=== PATIENT | female | born 1975 | race Caucasian/White ===

== ENCOUNTER 2016-07-27 14:19 | Observation (INO) ==
[2016-07-27] MEDS ORDERED: ZOFRAN IV PRN (15:40)
[2016-07-27] MEDS ORDERED: NS 1,000 ML IV ONE (15:45)
[2016-07-27 16:07] LABS: MANUAL DIFF NEEDED? NO
[2016-07-27 16:11] LABS: BASO% 0.6 % (0.0-0.8); EOS# 0.14 X1000 (0.0-0.7); EOS% 1.8 % (0.0-10.0); HEMATOCRIT 41.1 % (37.0-47.0); HEMOGLOBIN 14.1 g/dL (12.0-16.0); IMM GRAN# 0.01 X1000 (0.0-0.04); IMM GRAN% 0.1 % (0.0-0.5); LYMPH# 2.24 X1000 (1.2-3.4); LYMPH% 28.2 % (20.5-51.1); MCH 29.6 PG (27-31); MCHC 34.3 g/dL (33-37); MCV 86.2 FL (81-99); MONO# 0.56 X1000 (0.11-0.59); MPV 11.2 FL (7.4-10.4); NEUT% 62.3 % (42.2-75.2); PLT 302 X1000 (130-400); RBC 4.77 XMIL (4.2-5.4)
[2016-07-27] MEDS: NORCO-10 PO PRN (16:16)
--- NOTE | 2016-07-27 16:34 | HISTORY AND PHYSICAL ---
PRIMARY CARE PHYSICIAN: Dr. Yang. 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 Stated she was having trouble seeing her computer. She could not see the lines on the paper to sign her signature, slurred speech. She felt like her right arm began being cold and then it moved down to her right leg. States that she has headaches frequently at least 2- 3 a week and a migraine type headache at least 1 every 2 weeks. She presented to her primary care physician's office today who sent her for an MRI of the brain at the imaging center. That was a verbal report to primary care physician of negative. We have requested a faxed copy of the results and are awaiting those from the imaging center at this time. But, she is being admitted for further evaluation and treatment. PAST MEDICAL HISTORY: Shingles and hypertension. PAST SURGICAL HISTORY: and tonsillectomy. FAMILY HISTORY: Heart disease, cancer, CVA, and an VT. SOCIAL HISTORY: She currently lives with family. Denied any tobacco, alcohol, or illicit drug use. ALLERGIES: Sulfa drugs. HOME MEDICATIONS: We will obtain a current list and restart as appropriate. LABORATORY DATA: We are obtaining labs on admission for baseline. We are going to obtain an echo and a carotid ultrasound. CT of the chest. A right upper extremity ultrasound to rule out a DVT since her arm did get cold. We will review these results as they are available. REVIEW OF SYSTEMS: She denied any fever, chills. She was positive for some blurred vision, dizziness, headache, slurred speech, decreased vision, right arm and leg being cold. Denied any numbness, tingling, chest pain, coughing, shortness of breath. Denied any abdominal pain, constipation, diarrhea, or burning or hurting with urination. PHYSICAL EXAMINATION: GENERAL: This is a 40-year-old female who is admitted to [facility] as a direct admit from her primary care physician's office. HEENT: Normocephalic and atraumatic. Pupils are equal, round, reactive to light. Extraocular movements are intact. Oropharynx and nares are clear. NECK: Supple. LUNGS: Clear to auscultation bilaterally with equal lung expansion and chest wall movement. HEART: Regular rate and rhythm. No murmurs, rubs, or gallops. ABDOMEN: Soft, nontender, nondistended. Bowel sounds are present x4 quadrants. EXTREMITIES: There is no clubbing, cyanosis, or edema. NEUROLOGICAL: The cranial nerves 2 through 12 are grossly intact at this time, even though patient does state she continues to have a headache and rated it a 7-8 on a scale of 1-10, 10 being in the worst. ASSESSMENT: 1. Transient ischemic attack versus migraine. 2. Hypertension. 3. Nausea. PLAN: She is being admitted to the medical unit at [facility], placed on neuro checks q.4 hours. Will obtain a carotid ultrasound, echocardiogram, and an EKG. Will obtain an ANABELLA, BMP, C. reactive protein, CBC, CK, ferritin, free T4, sedimentation rate, troponin, TSH, and an iron level today. We will also obtain a CT of her chest and a right upper extremity ultrasound to rule out a DVT. We will place on normal saline at 75 mL an hour. We will give her [place] 10 one p.o. q.4 hours p.r.n., Zofran 4 mg IV q.4 hours p.r.n. Healthy heart diet. The patient does not have any neurological findings at this time. It is felt that this is most likely going to be migraine related but again, we will review all of these tests once they are available for a more definitive diagnosis at that time. Dictated by DANIEL Ruiz for Arias Lake MD pt examined, agree with above likley a complicated migraine, will continue to observe and pursue TIA workup in the interim, appreciate Dr Yang's input DANO BUCK
[2016-07-27] MEDS ORDERED: KLONOPIN PO PRN (16:40)
[2016-07-27 16:41] LABS: AGAP 11; ALBUMIN 4.7 g/dL (3.5-5.0); ALKALINE PHOSPHATASE 76 U/L (32-104); BUN 9 mg/dL (8-22); CALCIUM 9.6 mg/dL (8.8-10.2); CHLORIDE 99 mmol/L (98-107); COSMO 270; GOT 21 U/L (10-30); GPT 35 U/L (10-36); IRON SATURATION 23 %; POTASSIUM 3.7 mmol/L (3.5-5.1); SODIUM 136 mmol/L (136-145); TCO2 26 mmol/L (25-35); TIBC 305 ug/dL; TOTAL IRON 69 ug/dL (49-151); TOTAL PROTEIN 7.8 g/dL (6.3-8.3); UNBOUND IRON 236 ug/dL (112-346)
[2016-07-27] MEDS ORDERED: TORADOL IV PRN (16:42)
[2016-07-27] MEDS ORDERED: TORADOL IV ONE (16:42)
[2016-07-27 17:20] LABS: SED RATE 10 mm/hr (0-20)
[2016-07-27 17:25] LABS: FREE T4 1.36 ng/dL (0.93-1.70)
[2016-07-28] MEDS ORDERED: NS 1,000 ML IV SCH (04:00)
--- NOTE | 2016-07-28 05:52 | EKG Report ---
Test Performed on : 07/28/2016 05:41:51 AM Test Reason : AMS WITH MIGRAINE SYNDROME ,TIA Blood Pressure : / mmHG Vent. Rate : 073 BPM Atrial Rate : 073 BPM P-R Int : 142 ms QRS Dur : 072 ms QT Int : 428 ms P-R-T Axes : 023 076 084 degrees QTc Int : 471 ms Normal sinus rhythm. with sinus arrhythmia. Normal ECG No previous ECGs available Unconfirmed Result
[2016-07-28 06:30] LABS: AGAP 9; BUN 9 mg/dL (8-22); CALCIUM 8.6 mg/dL (8.8-10.2); CHLORIDE 106 mmol/L (98-107); COSMO 277; POTASSIUM 4.1 mmol/L (3.5-5.1); SODIUM 140 mmol/L (136-145); TCO2 25 mmol/L (25-35)
[2016-07-28 06:45] LABS: HEMATOCRIT 36.7 % (37.0-47.0); HEMOGLOBIN 12.3 g/dL (12.0-16.0); MCH 29.4 PG (27-31); MCHC 33.5 g/dL (33-37); MCV 87.6 FL (81-99); MPV 11.5 FL (7.4-10.4); RBC 4.19 XMIL (4.2-5.4)
[2016-07-28] MEDS: NORCO-10 PO PRN (08:24)
[2016-07-28] MEDS ORDERED: COZAAR PO SCH (10:15)
[2016-07-28] MEDS ORDERED: HYDROCHLOROTHIAZIDE PO SCH (10:15)
[2016-07-28] MEDS ORDERED: KLONOPIN PO SCH (10:15)
[2016-07-28] MEDS ORDERED: WELLBUTRIN XL PO SCH (10:15)
[2016-07-28] MEDS ORDERED: PATIENT'S OWN MED PO SCH (10:15)
--- NOTE | 2016-07-28 11:39 | Diag Imaging Result Document ---
PROCEDURE NAME: ANGIOGRAM/PULMONARY ARTERIES - 07/28/2016 CT CHEST WITH INTRAVENOUS CONTRAST: FINDINGS: There is normal opacification of the pulmonary arteries and their major branches. No thoracic aortic aneurysm or dissection. No pleural effusions. No cardiomegaly. No enlarged mediastinal or hilar lymph nodes. No axillary adenopathy. The blood vessels in the axilla appear normal. There is a 9 mm circumscribed nodule inferiorly in the left upper lobe. Questionable faint calcification within it. No other lung nodules. No consolidation. No bronchiectasis. IMPRESSION: There is a 9 mm nodule in the left lower lobe. Six month follow up recommended. [facility]
[2016-07-28 12:33] VITALS: BP 109/55
[2016-07-28] MEDS ORDERED: ADDERALL PO SCH (13:00)
--- NOTE | 2016-07-28 13:06 | CONSULTATION ---
DATE OF CONSULTATION: 07/28/2016 Ms. Saxena is 40 years old. She has a history of episodic migraine, more recent chronic daily headache and likely chronic migraine. She had a much more dramatic episode yesterday. Yesterday, she was in court and felt a headache coming on which was typical. She then noticed very sharp pain around the right side of her head which was not typical. She had trouble with vision to the right. She had trouble keeping her vision focused on a page and trouble following a line of words. Vision was generally blurred but seemed more focally diminished on the right. She did not cover 1 eye to test vision. She noticed a funny feeling with tingling and cold sensation in the right hand and then "ice cold" sensation involving the entire right arm. She had some similar but milder symptoms in the right leg. She was never unable to move her right limbs. Speech seemed slurred and she had trouble finding her words. Initially, she recognized that she was having difficulty communicating and she did not seem to have any trouble understanding what was said to her. At some point, there may have been more global language deficit with trouble understanding temporarily. She did not lose consciousness. Headache persisted but other symptoms resolved in a period of 12 hours or less. Headache is present but improved today. Workup includes brain MRI done at outside facility yesterday reported unremarkable. Her computer record this admission shows borderline initial blood pressure but unremarkable blood pressures after that. She has been afebrile. Heart rhythm has been reasonable. Lab work shows nothing remarkable on the chemistry profile and CBC. We did not have urine drug screen reported. Home medicines include hydrocodone/acetaminophen, losartan/hydrochlorothiazide, hormone. Caffeine intake is variable, a cup of coffee and 1 or 2 servings of an instant tea product some days, but not every day. Prior to this, she was having headaches most days. She began having headaches as a teenager. She began having more intense headaches episodically typical of migraine in her early 20s. She has a family history of headache, including mother, brother, maternal uncle. In recent years, she reports having an intense headache lasting 1-2 days associated with nausea, photophobia, phonophobia and malaise. These would occur about once a month on average. Sometimes, she thought these followed periods of stress. She has taken over-the -counter medicine, including Excedrin with limited benefit in the past. She has a prescription for hydrocodone/acetaminophen and that had generally been more effective when used for bad headache. In the last few years, in addition to the bad headaches, she has a mild-to- moderate headache nearly every day. This is usually global pressure, sometimes with nausea or phonophobia but generally not photophobia. She has never had significant neurologic deficit associated with headache in the past. On exam, she is awake, alert, attentive, appropriate. Speech is not dysarthric. Language function is intact on careful extensive bedside testing. Memory of recent and remote events is good. Head and neck are unremarkable. Visual bear are full tested carefully monocularly and binocularly by confrontational finger counting. Extraocular movements are full. Pupils react to light. Facial sensation and motility are normal and symmetric. Gag is intact. Tongue is midline. Hearing is good. Shoulder shrug is equal. Strength is normal in the arms and legs. There is no pronator drift. She did well on [id number] testing bilaterally. She reports symmetric sensation over the limbs. She did rapid alternating movements symmetrically with the right and left hand. Gait was tested just [address] table to the wheelchair and appeared unremarkable. IMPRESSION: 1. Recent dramatic episode most consistent with migraine. She reports she is left-handed and she had right-sided headache associated with dysphasia and that is consistent with a dominant right hemisphere migraine. However, there were also prominent right limb symptoms which is not consistent with isolated right hemisphere syndrome. This inconsistency is typical of migraine. I do not see evidence of increased intracranial pressure. Report of negative MRI is reassuring. I do not think we need further workup from neurologic standpoint now. I told her she might or might not ever have similar episodes in the future. 2. Chronic daily headache syndrome, probably chronic migraine. She has a past history of episodic headache, typical of migraine with usual family history noted. We discussed the possible explanations for development of daily headache including analgesic rebound/medication overuse, caffeine effects, hormone effects, elevated blood pressure, combinations of effects. We discussed options including making no changes, tracking blood pressures, stopping hormone temporarily, stopping abortive medicines, adding a medication daily for headache management, referral for other opinion. We discussed amitriptyline and divalproex briefly and we discussed topiramate in more detail. I have offered to follow her as an outpatient if needed. She has good followup with Dr. Yang and she may discuss options with him. Thanks for asking me to see Ms. Saxena. [facility]
--- NOTE | 2016-07-28 17:49 | ECHO REPORT ---
ORDER DATE: 07/27/2016 INTERPRETING PHYSICIAN: Dr. Molina REQUESTING PHYSICIAN: CLINICAL INDICATIONS: A 40-year-old female with possible TIA. M-MODE MEASUREMENTS: Right ventricle: 1.9 cm. Left ventricle end diastole: 4.0 cm. Left ventricle end systole: 3.0 cm. Posterior wall: 0.9 cm. Interventricular septum: 0.9 cm. Left atrium: 3.6 cm. Aortic root: 2.3 cm. SUMMARY OF 2-DIMENSIONAL IMAGING: The left ventricular function is normal. Ejection fraction is estimated at 59%. No wall motion abnormality is noted. The right ventricle is normal. The mitral valve looks normal. Color flow mapping is unremarkable. Pulse wave Doppler of mitral inflow is normal. Tissue Doppler of septal and lateral mitral annulus averages 12 cm per second. Pulse wave Doppler of pulmonary venous flow is normal. There is no diastolic dysfunction. The tricuspid valve looks normal. Color flow mapping unremarkable. The inferior vena cava is not dilated. Pulmonary pressure is normal. The pulmonic valve looks normal. Color flow mapping unremarkable. The aortic valve looks normal. Color flow mapping unremarkable. There is no pericardial effusion, masses or thrombus. IMPRESSION: In summary, this echocardiographic study appears to be grossly within normal limits. Clinical correlation recommended.
--- NOTE | 2016-07-28 22:40 | DISCHARGE SUMMARY ---
ADMISSION DATE: 07/27/2016 DISCHARGE DATE: 07/28/2016 PRIMARY CARE PHYSICIAN: Handy Yang M.D. CONSULTATION: Elvis Spears III, M.D., Neurology. ADMISSION DIAGNOSES: 1. Transient ischemic attack versus migraine. 2. Hypertension. 3. Nausea. DISCHARGE DIAGNOSES: 1. Migraine. 2. Hypertension. 3. Nausea, resolved. 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 She was having trouble seeing her computer and could not see the lines on the paper for her signature. She was noted to have some slurred speech. She felt like her right arm began being cold and then it moved to her right leg. She states that she has frequent headaches at least 2-3 a week and migraine-type headaches at least 1 every 2 weeks. She went to her primary care physician's office yesterday and had an MRI done outpatient that was reported to be negative. So she was admitted for evaluation and treatment. We did a venous Doppler of her right upper arm that was negative for deep venous thrombosis. Carotid ultrasound was within normal limits. CT of the chest for pulmonary arteriogram was done. That showed no PE. She was noted to have a 9 mm nodule in the left lower lobe that had some questionable faint calcification in it and a 6 month followup was recommended. Seen by Neurology today who felt that this was chronic migraines and felt that she would benefit from some topiramate daily. He offered to follow her outpatient if needed. 1. Patient is agreeable to the daily topiramate so we will start her on 50 mg 1 p.o. daily #30 with 2 refills. It is felt that she can safely be discharged home. 2. We will also give her a prescription for [place] 10, 1 p.o. q.6 hours p.r.n. # 20 with no refills. 3. She will continue her home medications of Adderall 10 mg p.o. t.i.d.; Wellbutrin 300 mg p.o. daily; Klonopin 0.5 mg to 1 mg tab p.o. b.i.d.; losartan/hydrochlorothiazide 50/12.5, 1 p.o. daily; Lutera 1 p.o. daily; and Klonopin 1 mg, 1/2 tablet p.o. p.r.n. FOLLOWUP: She will follow up with her primary care physician next week and call his office on Sunday for an appointment. At that time she will discuss the need with her primary care physician for further Neurology input. Again she will need a 6 month followup on a [address] of the chest with contrast. DISCHARGE INSTRUCTIONS: All discharge instructions were reviewed with the patient. She verbalized understanding. DISCHARGE TIME: 35 minutes. Dictated by DANIEL Ruiz for Arias Lake MD agree with above, likely a complicated migraine, followup with neurology or headache clinic of her choice, plan for topamax for prophylaxis APENOT MTDD
--- NOTE | 2016-07-31 07:19 | Extremity Venous Study ---
PROCEDURE NAME: Carotid Ultrasound - 07/27/2016 CAROTID DOPPLER ULTRASOUND: FINDINGS: RIGHT: There is normal flow in the right common carotid artery. Minimal intimal thickening. No plaque or stenosis. Normal flow in the internal carotid artery. No plaque or stenosis. The peak systolic velocity in the internal carotid artery is 91 cm per second. There is antegrade flow in both vertebral arteries. LEFT: There is normal flow in the left common carotid artery. No plaque or stenosis. Minimal intimal thickening. No plaque or stenosis in the internal carotid artery. The peak systolic velocity is 98 cm per second. IMPRESSION: No stenosis within either common carotid artery or within either internal carotid artery.
--- NOTE | 2016-07-31 07:23 | Extremity Venous Study ---
PROCEDURE NAME: Venous U/S Right Arm - 07/27/2016 RIGHT UPPER EXTREMITY VENOUS DOPPLER ULTRASOUND: FINDINGS: There is good flow and compressibility to the veins of the right upper extremity. No thrombus. Normal augmentation. IMPRESSION: No evidence of deep vein thrombosis in the right upper extremity.
== END 2016-07-28 15:51 | disposition home or self-care (01) ==
LOC: P.DIRADM 14:19 → P.MEDSURG 15:02
PROVIDERS: ADMIT Internal Medicine; ATTEND Internal Medicine
DX: G43.909 Migraine, unspecified, not intractable, without status migrainosus (principal); I10 Essential (primary) hypertension; R11.0 Nausea; R47.02 Dysphasia; R20.2 Paresthesia of skin; R41.82 Altered mental status, unspecified; R91.8 Other nonspecific abnormal finding of lung field; Z82.3 Family history of stroke; H54.7 Unspecified visual loss; R47.81 Slurred speech; R20.8 Other disturbances of skin sensation; Z79.899 Other long term (current) drug therapy; Z86.2 Personal history of diseases of the blood and blood-forming organs and certain disorders involving the immune mechanism; Z80.9 Family history of malignant neoplasm, unspecified
CPT/HCPCS: 71275; 80048; 80053; 82550; 82728; 83540; 83550; 84439; 84443; 84484; 85025; 85027; 85651; 86038; 86140; 93005; 93306; 93880; 93971; J1885; J7030; Q9967